=== PATIENT | male | born 1960 | race Caucasian/White ===

== ENCOUNTER 2021-11-13 17:22 | Outpatient (CLI) | payer BC | END 2021-11-13 17:23 | disposition home or self-care (01) | LOC: BURRAD 17:22 | PROVIDERS: ATTEND Family Medicine | DX: R22.2 Localized swelling, mass and lump, trunk (principal) | CPT/HCPCS: 71120 ==

== ENCOUNTER 2024-04-02 01:57 | Emergency (ER) | payer MEDICARE, OTHER ==
[2024-04-02] MEDS ORDERED: Famotidine 20 MG TAB ONE (02:15)
[2024-04-02] MEDS ORDERED: predniSONE 20 MG TAB ONE (02:15)
== END 2024-04-02 02:33 | disposition home or self-care (01) ==
LOC: BURERS 01:57
DX: L23.7 Allergic contact dermatitis due to plants, except food (principal); E78.00 Pure hypercholesterolemia, unspecified; Z55.6 Problems related to health literacy; Z79.899 Other long term (current) drug therapy
CPT/HCPCS: 99283; J7512